=== PATIENT | female | born 1975 | race Caucasian/White ===

== ENCOUNTER 2016-08-11 17:08 | Emergency (ER) | payer MEDICAID ==
[~2016-08-11] VITALS: Ht 165.1 cm; Wt 96.5 kg
[~2016-08-11 17:08] MED LIST: ACET500C5 PO; IBUP-1542 PO; KTR.5OP5 RIGHT EYE
[2016-08-11 17:10] VITALS: Ht 165.1 cm; Wt 96.5 kg
[2016-08-11] MEDS ORDERED: FLUORESCEIN STRIP LEFT EYE STA (17:34)
[2016-08-11] MEDS ORDERED: TETRACAINE 0.5% 4 ML OPH LEFT EYE ONE (18:00)
[2016-08-11] MEDS ORDERED: ACET325T33 PO (18:03)
[2016-08-11] MEDS ORDERED: ERYTOPOI LEFT EYE (18:03)
[2016-08-11 18:39] VITALS: BP 122/76; PULSE 83; RESP 18; TEMP 98
--- NOTE | 2016-08-11 20:22 | ERD ---
ER Documentation Chief Complaint Date/Time DATE: 08/11/16 TIME: 20:19 Chief Complaint LEFT SIDE OF HEAD PAIN X 2 DAYS HPI This is a 41-year-old female presenting to the emergency department complaining of a burning sensation in her left eye for the past 2 days. Patient states that she has very dry eyes and she has been itching her eyes. Patient states the pain is 6 out of 10 in the left eye and denies any vision changes associated with it. Patient also states that she has a left-sided headache that comes and goes rating it mild in severity. She denies any headache at this moment. Patient denies any foreign body. She denies any medications or fevers ROS All systems reviewed and are negative except as per history of present illness. Medications Home Meds Active Scripts Acetaminophen* (Tylenol*) 325 Mg Tablet, 2 TAB PO Q6 Y for PAIN AND OR ELEVATED TEMP, #20 TAB Prov:ANTIONE MIRELES PA-C 08/11/16 Erythromycin* (Erythromycin* Ophthalmic) 1 Applic Oint, 1 APPLIC LEFT EYE QID for 7 Days, EA Prov:ANTIONE MIRELES PA-C 08/11/16 Ibuprofen* (Motrin*) 600 Mg Tab, 600 MG PO Q6H Y for PAIN AND OR ELEVATED TEMP, #30 TAB Prov:VALERY MCNEAL MD 10/03/15 Ketorolac Tromethamine Oph (Acular) 10 Ml Drops, 1 DROP RIGHT EYE QID, #1 BOTTLE Prov:AVERY SINGLETON NP 06/08/15 Acetaminophen* (Tylophen*) 500 Mg Capsule, 1 CAP PO Q6H Y for PAIN AND OR ELEVATED TEMP, #20 CAP Prov:RYLAND JONES NP 11/16/14 Allergies Allergies: Coded Allergies: No Known Allergy (Unverified , 08/11/16) PMhx/Soc Medical and Surgical Hx: pt denies Medical Hx, pt denies Surgical Hx History of Surgery: No Anesthesia Reaction: No Hx Neurological Disorder: No Hx Respiratory Disorders: No Hx Cardiac Disorders: No Hx Psychiatric Problems: No Hx Miscellaneous Medical Probl: No Hx Alcohol Use: No Hx Substance Use: No Hx Tobacco Use: No Smoking Status: Never smoker Physical Exam Vitals Vital Signs Date Time Temp Pulse Resp B/P Pulse Ox O2 Delivery O2 Flow Rate FiO2 08/11/16 18:39 98.0 83 18 122/76 99 Room Air 08/11/16 17:10 97.3 84 18 126/79 98 Physical Exam General: WD/WN, in no apparent distress, non-toxic appearing HENT: NC/AT EYES: Conjunctiva normal, no icterus Extraocular muscles intact, pupils equal and reactive to light with consensual response No ptosis, proptosis Fluorescein staining examination with thompson lamp in the left eye showed corneal abrasion at 6 o'clock position Negative Karlee test NECK: Supple; no LAD PULM: Normal labored breathing CV: RRR Good capillary refill GI: Non-distended, no guarding BACK: No masses EXT: No clubbing, cyanosis, or edema NEURO: Moves on all fours SKIN: intact PSYCH: Normal mood Results 24 hrs Current Medications Medications (Trade) Dose Ordered Sig/Nomi Route PRN Reason Start Time Stop Time Status Last Admin Dose Admin Tetracaine HCl (Tetracaine 0.5% Steri-Unit Rasheeda) 1 drop ONCE ONCE LEFT EYE 08/11/16 18:00 08/11/16 18:01 DC Fluorescein Sodium (Rldtr-S-Tzwzz) 1 strip ONCE STAT LEFT EYE 08/11/16 17:34 08/11/16 17:36 DC Procedures/MDM This is a 41-year-old female presenting to the emergency department complaining of headache that comes and goes and left eye pain since she itched her left eye for 2 days likely due to a corneal abrasion. Low suspicion for conjunctivitis, corneal ulcer, glaucoma, anterior uveitis, blepharitis, and other ophthalmologic emergencies. PROCEDURE NOTE: Consent was obtained. Two gtts of 0.5% tetracaine was placed in eye. t eye Fluorescein stained. Linear corneal abrasion seen at the 6 oclock position with black light. Patient tolerated it well. DISPOSITION: Stable. Prescriptions erythromycin ointment given. Discussed to return to the ER if condition worsens or not improving as expected. Patient understood and agreed with this plan. Departure Diagnosis: Primary Impression: Corneal abrasion Additional Impression: Headache Condition: Stable Patient Instructions: Self-Care for Headaches, Corneal Abrasion Referrals: [facility] Hours: Mon - Fri 9:00 AM - 5:00 PM Additional Instructions: Visite a eduard chinchilla para un EXAMEN.Regrese a estas instalaciones si no se mejora shlomo esperbamos o shlomo le dijimos. [place] toda la medicina albina y shlomo se le indic. Regrese a estas instalaciones si no se mejora shlomo esperbamos o shlomo le dijimos. Specialist:Usted tiene samuel condicin mdica que requiere que carlos a un especialista dentro de los prximos 1-2 matos.POR FAVOR,CON HERNANDEZ SEGUIMIENTO DE PRIMARIA PHSICIAN refferal. SI USTED NO TIENE UN MDICO GENERAL Y / O USTED NO PUEDE PAGAR adeel a un mdico,los siguientes blankenship RECURSOS sido suministrado a usted. ES HERNANDEZ RESPONSABILIDAD PARA SER VISTOS POR EL ESPECIALISTA: ANTIONE MIRELES PA-C August 11, 2016 20:22
== END 2016-08-11 18:39 | disposition home or self-care (01) ==
LOC: FTE 17:08
DX: S05.02XA Injury of conjunctiva and corneal abrasion without foreign body, left eye, initial encounter (principal); X58.XXXA Exposure to other specified factors, initial encounter; Y92.9 Unspecified place or not applicable
CPT/HCPCS: Z7502; Z7610; 99283

== ENCOUNTER 2017-03-07 12:00 | Emergency (ER) | payer MEDICAID ==
[~2017-03-07] VITALS: Ht 167.6 cm; Wt 93.3 kg
[~2017-03-07 12:00] MED LIST changes: +ACET325T33 PO; +ERYTOPOI LEFT EYE
[2017-03-07 12:40] VITALS: Ht 167.6 cm; Wt 93.3 kg
[2017-03-07] MEDS ORDERED: ALBUTEROL 0.083% (NEB) 2.5 MG/3 ML AMP HHN STA (14:01)
[2017-03-07] MEDS ORDERED: predniSONE 20 MG TAB PO ONE (14:30)
[2017-03-07] MEDS ORDERED: IPRATROPIUM (NEB) 0.5 MG/2.5 ML AMP HHN ONE (14:30)
--- NOTE | 2017-03-07 14:51 | RADRPT ---
PROCEDURE: Chest x-ray CLINICAL INDICATION: Shortness of breath TECHNIQUE: Chest single view COMPARISON: None FINDINGS: The heart is normal in size. The pulmonary vessels are normal in caliber. The lungs are clear. Th e costophrenic angles are sharp. The visualized bony thorax is unremarkable. IMPRESSION: No acute cardiopulmonary disease. RPTAT: HH .Cesar Irwin MD, Date Time Electronically viewed and signed by .Cesar Irwin MD, on 03/07/2017 14:50 .W/
[2017-03-07] MEDS ORDERED: PRED20TA PO (15:14)
[2017-03-07] MEDS ORDERED: ALBU8.5H3 INH (15:14)
[2017-03-07] MEDS ORDERED: AZIT250T94 PO (15:14)
--- NOTE | 2017-03-07 15:40 | ERD ---
ER Documentation Chief Complaint Chief Complaint c/o cough with chest congestion x1 month, was on steroids for 7 days HPI This 41-year-old female presents with cough and possible wheezing for last month. She took steroids approximately 2 weeks ago. She has some mild productive mucus. She denies fevers, chest pain, vomiting. ROS All systems reviewed and are negative except as per history of present illness. Medications Home Meds Active Scripts Prednisone* (Prednisone*) 20 Mg Tab, 40 MG PO DAILY for 4 Days, TAB Prov:DAX DE JESUS MD 03/07/17 Albuterol Sulfate* (Proair HFA*) 8.5 Gm Hfa.aer.ad, 2 PUFF INH Q4, #1 INHALER Prov:DAX DE JESUS MD 03/07/17 Azithromycin* (Zithromax*) 250 Mg Tablet, 250 MG PO .ZPACK DIRECTED, #6 TAB TAKE 500 MG (2 TABS) THE FIRST DAY THEN 250 MG (1 TAB) DAYS 2-5 Prov:DAX DE JESUS MD 03/07/17 Acetaminophen* (Tylenol*) 325 Mg Tablet, 2 TAB PO Q6 Y for PAIN AND OR ELEVATED TEMP, #20 TAB Prov:ANTIONE MIRELES PA-C 08/11/16 Erythromycin* (Erythromycin* Ophthalmic) 1 Applic Oint, 1 APPLIC LEFT EYE QID for 7 Days, EA Prov:ANTIONE MIRELES PA-C 08/11/16 Ibuprofen* (Motrin*) 600 Mg Tab, 600 MG PO Q6H Y for PAIN AND OR ELEVATED TEMP, #30 TAB Prov:VALERY MCNEAL MD 10/03/15 Ketorolac Tromethamine Oph (Acular) 10 Ml Drops, 1 DROP RIGHT EYE QID, #1 BOTTLE Prov:VAERY SINGLETON NP 06/08/15 Acetaminophen* (Tylophen*) 500 Mg Capsule, 1 CAP PO Q6H Y for PAIN AND OR ELEVATED TEMP, #20 CAP Prov:RYLAND JONES NP 11/16/14 Allergies Allergies: Coded Allergies: No Known Allergy (Unverified , 08/11/16) PMhx/Soc Medical and Surgical Hx: pt denies Medical Hx, pt denies Surgical Hx History of Surgery: No Anesthesia Reaction: No Hx Neurological Disorder: No Hx Respiratory Disorders: No Hx Cardiac Disorders: No Hx Psychiatric Problems: No Hx Miscellaneous Medical Probl: No Hx Alcohol Use: No Hx Substance Use: No Hx Tobacco Use: No Smoking Status: Never smoker Physical Exam Vitals Vital Signs Date Time Temp Pulse Resp B/P Pulse Ox O2 Delivery O2 Flow Rate FiO2 03/07/17 14:59 90 20 93 21 03/07/17 12:40 96.8 92 20 133/73 95 Physical Exam Const: [] Alert, [id number]. Head: Atraumatic Eyes: Normal Conjunctiva ENT: Normal External Ears, Nose and Mouth. TMs and oropharynx normal. Neck: Full range of motion..~ No meningismus. Resp: Coarse breath sounds diffusely and wheezing without rales or retractions. Cardio: Regular rate and rhythm, no murmurs Abd: Soft, non tender, non distended. Normal bowel sounds Skin: No petechiae or rashes Back: No midline or flank tenderness Ext: No cyanosis, or edema Neur: Awake and alert Psych: Normal Mood and Affect Results 24 hrs Current Medications Medications (Trade) Dose Ordered Sig/Nomi Route PRN Reason Start Time Stop Time Status Last Admin Dose Admin Prednisone (Prednisone) 60 mg ONCE ONCE PO 03/07/17 14:30 03/07/17 14:31 DC 03/07/17 14:55 Albuterol (Proventil 0.083% (Neb)) 5 mg ONCE STAT N 03/07/17 14:01 03/07/17 14:03 DC 03/07/17 14:58 Ipratropium [place] (Atrovent 0.02% (Neb)) 0.5 mg ONCE ONCE N 03/07/17 14:30 03/07/17 14:31 DC 03/07/17 14:58 Procedures/MDM Patient presents with cough and coarse breath sounds over the last month. Chest X-ray 1V Interpreted by me: Soft Tissue: No acute abnormalities Bones: No acute abnormalities Mediastinum/Cardiac Silhouette/Lungs: [No acute abnormalities]. Impression- normal 1 view chest x-ray Patient is given albuterol and Atrovent treatment and prednisone 40 mg of mouth. Patient had improved breath sounds with clear lungs on serial exam. Patient presents with coughing and wheezing for last month without evidence of hypoxemia, respiratory distress. She will be treated with Zithromax, prednisone , pro-air, primary care follow-up and return precautions. The patient was stable with no new complaints during the ER course. Clinically, there is no current evidence to suggest meningitis, sepsis, acute abdomen, pneumonia, acute coronary syndrome, pulmonary embolism, or any other emergent condition appearing to require further evaluation or hospitalization. The patient should certainly return for any new or worsening symptoms per the aftercare instructions. They should otherwise follow-up with her primary care doctor for reevaluation this week. Departure Diagnosis: Primary Impression: Wheezy bronchitis Condition: Stable Patient Instructions: Bronchitis With Wheezing (Adult) Additional Instructions: X-ray normal. May be lingering viral illness but will treat for infection. X RAY normal hoy. Cheque otro vez con chapa doctor primario en el proximo roberts or regresa para mas o nueva simptomas. DAX DE JESUS MD Mar 07, 2017 15:40
[2017-03-07 16:03] VITALS: BP 127/71; PULSE 101; RESP 20; TEMP 97.6
== END 2017-03-07 16:04 | disposition home or self-care (01) ==
LOC: FTE 12:00
DX: J20.9 Acute bronchitis, unspecified (principal)
CPT/HCPCS: 71010; 94664; J7512; Z7502; Z7610

== ENCOUNTER 2017-03-21 01:45 | Emergency (ER) | payer MEDICAID ==
[~2017-03-21] VITALS: Ht 167.6 cm; Wt 95.3 kg
[~2017-03-21 01:45] MED LIST changes: +ALBU8.5H3 INH; +AZIT250T94 PO; +PRED20TA PO
[2017-03-21 01:56] VITALS: Ht 167.6 cm; Wt 95.3 kg
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
[2017-03-21] MEDS ORDERED: IBUP800T25 PO (03:18)
[2017-03-21] MEDS ORDERED: CYCL-319 PO (03:18)
[2017-03-21] MEDS ORDERED: IBUPROFEN 600 MG TAB PO ONE (03:30)
[2017-03-21] MEDS ORDERED: CYCLOBENZAPRINE 10 MG TAB PO ONE (03:30)
== END 2017-03-21 03:47 | disposition home or self-care (01) ==
LOC: E/R 01:45
DX: M54.2 Cervicalgia (principal); R40.2252 Coma scale, best verbal response, oriented, at arrival to emergency department; M25.512 Pain in left shoulder; M54.9 Dorsalgia, unspecified; J45.909 Unspecified asthma, uncomplicated
CPT/HCPCS: Z7502; Z7610; 99283

== ENCOUNTER 2018-03-04 22:27 | Emergency (ER) | END 2018-03-04 23:24 | disposition home or self-care (01) ==

== ENCOUNTER 2018-09-20 17:24 | Emergency (ER) | payer OTHER ==
[~2018-09-20] VITALS: Wt 89.0 kg
[~2018-09-20 17:24] MED LIST changes: -ALBU8.5H3 INH; +ALBU8.5H8 INH; +AMOX500C2 PO; +AZIT250T PO; -AZIT250T94 PO; +CYCL10TA7 PO; +IBUP800T48 PO; +NAPR-985 PO
[2018-09-20 17:26] VITALS: BP 121/74; PULSE 83; RESP 18
[2018-09-20] MEDS ORDERED: IBUPROFEN 600 MG TAB PO ONE (18:00)
[2018-09-20] MEDS ORDERED: IBUP-1542 PO (18:02)
--- NOTE | 2018-09-20 18:06 | ERD ---
ER Documentation Chief Complaint Chief Complaint SORE THROAT X 3 DAYS HPI This is a 43-year-old female with a nonsignificant past medical history presents ED with complaints of sore throat x3 days. Admits to painful and itchiness of the throat. Denies fever, chills, runny nose, ear pain, cough, congestion, sputum production, chest pain, shortness of breath, trouble breathing and all other symptoms. No known drug allergies ROS All systems reviewed and are negative except as per history of present illness. Medications Home Meds Active Scripts Ibuprofen* (Motrin*) 600 Mg Tab, 600 MG PO Q6, #30 TAB Prov:SUMIT ZAPIEN PA-C 09/20/18 Naproxen* (Naprosyn*) 500 Mg Tablet, 500 MG PO BID PRN for PAIN AND/OR INFLAMMATION, #30 TAB Prov:RICHARD GUERRA PA-C 03/04/18 Amoxicillin* (Amoxicillin*) 500 Mg Cap, 500 MG PO TID for 10 Days, CAP Prov:RICHARD GUERRA PA-C 03/04/18 Ibuprofen* (Motrin*) 800 Mg Tab, 800 MG PO Q6, #30 TAB Prov:RICHARD ZURITA 03/21/17 Cyclobenzaprine Hcl* (Cyclobenzaprine Hcl*) 10 Mg Tablet, 10 MG PO TID, #15 TAB Prov:RICHARD ZURITA 03/21/17 Prednisone* (Prednisone*) 20 Mg Tab, 40 MG PO DAILY for 4 Days, TAB Prov:DAX DE JESUS MD 03/07/17 Albuterol Sulfate* (Proair HFA*) 8.5 Gm Hfa.aer.ad, 2 PUFF INH Q4, #1 INHALER Prov:DAX DE JESUS MD 03/07/17 Azithromycin* (Zithromax*) 250 Mg Tablet, 250 MG PO .EliasPACK DIRECTED, #6 TAB TAKE 500 MG (2 TABS) THE FIRST DAY THEN 250 MG (1 TAB) DAYS 2-5 Prov:DAX DE JESUS MD 03/07/17 Acetaminophen* (Tylenol*) 325 Mg Tablet, 2 TAB PO Q6 PRN for PAIN AND OR ELEVATED TEMP, #20 TAB Prov:ANTIONE MIRELES PA-C 08/11/16 Erythromycin* (Erythromycin* Ophthalmic) 1 Applic Oint, 1 APPLIC LEFT EYE QID for 7 Days, EA Prov:ANTIONE MIRELES PA-C 08/11/16 Ibuprofen* (Motrin*) 600 Mg Tab, 600 MG PO Q6H PRN for PAIN AND OR ELEVATED TEMP, #30 TAB Prov:VALERY MCNEAL MD 10/03/15 Ketorolac Tromethamine Oph (Acular) 10 Ml Drops, 1 DROP RIGHT EYE QID, #1 BOTTLE Prov:AVERY SINGLETON NP 06/08/15 Acetaminophen* (Tylophen*) 500 Mg Capsule, 1 CAP PO Q6H PRN for PAIN AND OR ELEVATED TEMP, #20 CAP Prov:RYLAND JONES NP 11/16/14 Allergies Allergies: Coded Allergies: acetaminophen (Verified Adverse Reaction, Intermediate, palpitation, 03/04/18) hydrocodone (Verified Adverse Reaction, Intermediate, palpitation, 03/04/18) PMhx/Soc History of Surgery: No Anesthesia Reaction: No Hx Neurological Disorder: No Hx Respiratory Disorders: Yes (asthma) Hx Cardiac Disorders: No Hx Psychiatric Problems: No Hx Miscellaneous Medical Probl: No Hx Alcohol Use: No Hx Substance Use: No Hx Tobacco Use: No Smoking Status: Never smoker FmHx Family History: No diabetes Physical Exam Vitals Vital Signs Date Temp Pulse Resp B/P (MAP) Pulse Ox O2 O2 Flow FiO2 Time Delivery Rate 09/20/18 98.2 83 18 121/74 99 17:26 (90) Physical Exam Physical Exam Vitals signs: Reviewed by me. General: Well developed, well nourished, in no acute distress. Patient is awake and alert. Head: Normocephalic, atraumatic. Eyes: Normal conjunctiva, Pupils PERRLA, EOM intact grossly ENT: Pharynx is clear, Moist mucous membranes, external ears, nose and mouth normal, oropharynx is unremarkable, there is no tonsillar adenopathy, exudate or erythema, no kissing tonsils, no uvula deviation, normal nasal mucosa, tympanic membrane visualized bilaterally no bulging, erythema, purulent air-fluid line seen Neck: Supple, no masses, lymphadenopathy or JVD Respiratory: Clear to auscultation bilaterally with no wheezing, rhonchi, rales, no distress Cardiovascular: RRR, no murmurs, rubs, or gallops Neurologic: Alert and oriented, moving all extremities, normal speech, no focal weakness, no cerebellar signs. Normal mentation Skin: warm and dry, No rash Psych: Normal mood Results 24 hrs Current Medications Medications Dose Sig/Nomi Start Time Status Last (Trade) Ordered Route PRN Stop Time Admin Dose Reason Admin Ibuprofen 600 mg ONCE ONCE 09/20/18 DC 09/20/18 (Motrin) PO 18:00 18:00 09/20/18 18:01 Procedures/MDM ER COURSE: The patient was stable throughout ED course. I kept the patient and/or family informed of laboratory and diagnostic imaging results throughout the emergency room course. The patient was promptly evaluated and a treatment plan was devised based on H&P and other data. This plan was discussed with the patient who agreed and had no further questions or concerns prior to discharge. MEDICAL DECISION MAKING: This is a 43-year-old female presents ED with complaints of sore throat x3 days. Physical examination is unremarkable. This is likely viral pharyngitis. Patient is advised to use [id number] Chloraseptic spray. At this time there is no ENT emergency. No evidence of sepsis, meningitis, mastoiditis, retropharyngeal abscess, peritonsillar abscess, epiglottitis, Piter's, among others. Vitals are stable patient can be managed with close outpatient follow- up. Advised patient follow-up with primary care in the next 48 hours. Return to ED with any worsening symptoms DISPOSITION PLAN: We discussed follow up with the patient's primary care doctor within 24 to 48 hours. Patient counseled regarding my diagnostic impression and care plan. Prior to discharge all questions answered. Pt agrees with treatment plan and understands strict return precautions. Precautionary instructions provided including instructions to return to the ER if not improving or for any worsening or changing symptoms or concerns. ExitCare instructions provided. Prior to discharge, patients vital signs have been reviewed SPECIALIST FOLLOW UP RECOMMENDED: None Patient has been advised to follow up with primary care in 1-2 days. Disclaimer: Inadvertent spelling and grammatical errors are likely due to EHR/dictation software use and do not reflect on the overall quality of patient care. Also, please note that the electronic time recorded on this note does not necessarily reflect the actual time of the patient encounter. Blood Pressure Assessment: Patient's blood pressure was elevated (>120/80) but appears stable without evidence of hypertension emergency or urgency. The patient was counseled about the risks of hypertension and urged to pursue outpatient monitoring and therapy within a week with their primary care physician. Departure Diagnosis: Primary Impression: Sore throat Condition: Stable Patient Instructions: When You Have a Sore Throat, Self-Care for Sore Throats Referrals: [facility]) [facility] Usted se gonzalez hecho un examen mdico de control que le indica que no est en samuel condicin que requiera tratamiento urgente en el Departamento de Emergencia. Un estudio ms profundo y el tratamiento de chapa condicin pueden esperar sin ningn riesgo hasta que usted sea atendida/o en el consultorio de chapa mdico o samuel clnica. Es responsabilidad suya arreglar samuel deann para el seguimiento del link. MANEJO DE CONDICIONES NO URGENTES EN EL FUTURO 1) Si usted tiene un mdico de atencin primaria: Usted debera llamar a chapa mdico de atencin primaria antes de venir al departamento de emergencia. Despus de las horas de consultorio, chapa doctor o chapa asociado/a est disponible por telfono. El mdico o enfermero de bruce en el servicio telefnico puede asesorarle por charlene medio para atender el problema, o link contrario se puede programar samuel deann. 2) Si usted no tiene un mdico de atencin primaria: Llame al mdico o clnica de referencia que aparece abajo darline las horas de consultorio para hacer samuel deann para que le vean. CLINICAS: [facility] [phone] [address] [facility] [phone] [address] [place] [phone] [address] [facility] [phone] [address] [facility]. [facility] 021 [phone] [address] [facility] [phone] [address] Additional Instructions: Paciente aconseja volver a Departamento de urgencias inmediatamente para s ntomas nuevos o que empeoran . Paciente aconseja posteriores con el PCP en 1-2 matos . Paciente verbaliza la comprehensin y est de acuerdo con el tratamiento y el curso de accin. Si el paciente no tiene ninguna de atencin primaria pueden seguir con [facility] [id number] [place] [address] o LAC + [address] [phone] SUMIT ZAPIEN PA-C Sep 20, 2018 18:06
== END 2018-09-20 18:05 | disposition home or self-care (01) ==
LOC: FTE 17:24
DX: J02.9 Acute pharyngitis, unspecified (principal); J45.909 Unspecified asthma, uncomplicated
CPT/HCPCS: Z7502; Z7610; 99282